=== PATIENT | female | born 1930 | race Caucasian/White ===

== ENCOUNTER → 2019-03-23 | Outpatient (CLI) | payer OTHER, MEDICAID ==
[~2019-03-23] MED LIST: ADULT LOW DOSE81 MG; ANXIETY MED; ASPIRIN; CLONAZEPAM 1 MG1 M1 PO; COLESTID1 GM PO; FISH OIL 1,0001 EAC5; FLEXERIL PO; INDERAL; INDERAL LA60 MG PO; LOMOTIL TABLET1 EACH PO; MAXIDE; MAXZIDE-25 MG1 EACH PO; MIRTAZAPINE; REMERON 30 MG T30 M1 PO; TYLENOL EX-STR500 M2 PO; VICODIN 5-5001 EACH PO
--- NOTE | 2019-03-23 17:12 | EXE ---
[place] [address] STRESS ECHOCARDIOGRAM Name: LINDA BROCK Room: [facility]#: [id number] Admission: 03/23/19 Attend Phys: Thao Castañedaise, Discharge: Date of : [birth year] Date of Service: 03/23/19 1711 Report #: [id number] THIS REPORT FOR: //name// APPROVED REPORT Study performed: 03/23/2019 15:33:36 Exam: Dobutamine Stress Echo Indication: Irreg. heart beat, Edema Patient Location: Out-Patient Stress Nurse: Amanda Garg RN Supervising Physician: Tl Yu MD Ht: 5 ft 3 in HR: 86 bpm BP: 130/77 mmHg Medical History Cardiac Risk Factors: HTN Procedure The patient underwent a Pharmacological Stress Test using Dobutamine. Blood pressure, heart rate, and EKG were monitored. An Echocardiogram was performed by manufacturing technician in four stages in quad fashion. At peak stress, four selected images were obtained and placed side by side with resting images for comparison. Stress Test Details Stress Test: Pharmacological Stress Test using Dobutamine. Reason for pharmacologic stress test: physical limitation. HR Resting HR: 86 bpm Max Heart Rate (APMHR): 133 bpm Max HR Achieved: 128 bpm Target HR (85% APMHR): 113 bpm % of APMHR: 96 Recovery HR: 94 bpm HR response to stress: Normal HR response to stress BP Resting BP: 130/77 mmHg Max BP: 167/80 mmHg Recovery BP: 167/80 mmHg BP response to stress: Normal blood pressure response to stress. ECG Resting ECG: Sinus Rhythm, [place] [address] STRESS ECHOCARDIOGRAM Name: LINDA BROCK Room: [facility]#: [id number] Admission: 03/23/19 Attend Phys: Thao Grove, Discharge: Date of : [birth year] Date of Service: 03/23/19 1711 Report #: [id number] Stress ECG: Sinus Rhythm, RBBB ST Change: Normal Maximum ST Deviation: 0 mm Arrhythmia: APC's Recovery ECG: Sinus Rhythm, RBBB Recovery ST Change: Normal Recovery ST Deviation: 0 mm Recovery Arrhythmia: APC Clinical Reason for Termination: Completed protocol Pre-Stress Echo The resting Echocardiogram showed normal left ventricular contractility with an estimated Ejection Fraction of about 60-65%. Post-Stress Echo The stress Echocardiogram showed normal left ventricular contractility with an estimated Ejection Fraction of about >70%. Compared to rest, there were no stress-induced wall motion abnormalities. Conclusion Clinical Response: Non-ischemic Stress ECG Response: Non-ischemic Stress Echo Images: Non-ischemic low risk dobutamine stress echo for predicitng future cardiac events Other Information Study Quality: Good <Conclusion> low risk dobutamine stress echo for predicitng future cardiac events <ELECTRONICALLY SIGNED> By: Tl Yu MD, FACC 03/23/191710 10 10 Tl Yu MD, FACC /INF
== END ==
LOC: M.CRD 14:24
DX: M79.89 Other specified soft tissue disorders (principal); I49.9 Cardiac arrhythmia, unspecified; I10 Essential (primary) hypertension

== ENCOUNTER 2020-02-08 10:35 | Inpatient (IN) | payer OTHER, MEDICAID ==
[~2020-02-08] VITALS: Ht 162.6 cm; Wt 67.5 kg
--- NOTE | ~2020-02-08 | CON ---
[address] [address] CONSULTATION Name: LINDA BROCK Room: [address] IN M.R.#: [id number] Admission: 02/08/20 Attend Phys: Murali Myers MD Discharge: Date of : [birth year] Report #: [id number] THIS REPORT FOR: //name// cc: Juan Jeffrey MD, Dennis R MD ~ DATE OF SERVICE: 02/09/2020 HISTORY OF PRESENT ILLNESS: This is an 89-year-old female patient who was evaluated by me for altered mental status. The patient is unable to provide any reliable history. I talked to the patient's daughter who provided most of the history. This patient has a longstanding dementia. She is in a intermediate for about 10 years. She follows up with Dr. Hernandez, who is a neurologist at [facility]. He manages her dementia medication. It looks like she is on a combination of Exelon and Namenda. She had a urinary tract infection and it became worse. She gets about 2 urinary tract infection per year and all the time she becomes confused like this and then she becomes better. As far as dementia is concerned, she usually does not know month or the year. She sometime recognize the close relatives and sometimes she does not. She does not have any prior history of stroke. REVIEW OF SYSTEMS: A 14-point review of system was carried out. She has a longstanding history of dementia. She has a history of urinary tract infections in the past and she has a urinary tract infection now. Rest of the 14-point review of system is difficult. It is partly taken from the patient's record and partly taken from talking to the daughter. She has a history of hypertension, cholecystectomy, GERD, depression, tremor, insomnia and Alzheimer's disease. This was a relevant 14-point review of system, which I can get. She can see, her hearing looks intact. She does not complain of any chest pain, respiratory difficulty, any new GI symptoms. She does not complain of that much even symptoms. There is no musculoskeletal, constitutional, dermatological, hematological, psychiatric, throat, allergic symptom associated with present symptomatology. PAST MEDICAL HISTORY: Positive for Alzheimer's dementia, which is very advanced. FAMILY HISTORY: Unremarkable. SOCIAL HISTORY: She lives in a intermediate according to the daughter. PHYSICAL EXAMINATION: Indicate she is alert. Her speech looks intact. She cannot tell me what month or what day it is. She does not know what hospital she is in. She knew Colleen was president but that is only cognitive function she had. Cranial nerve examination 2-12 looks unremarkable. She has symmetrical strength, sensation, reflexes and tone in all 4 extremities, [place] [address] CONSULTATION Name: LINDA BROCK Room: [address] IN [facility]#: [id number] Admission: 02/08/20 Attend Phys: Murali Myers MD Discharge: Date of : [birth year] Report #: [id number] lower extremity is present, but both plantars are withdrawal. Sensation, she says she can feel both sides. There is no cerebellar sign. I could not look at the patient's fundus. I did not make her walk, but she walks with a walker. There is no meningeal sign. There is no carotid bruit. Cardiac and respiratory examination is unremarkable. There is no respiratory difficulty. There is no rhonchi. Blood pressure is 184/65, respirations 17, pulse is 49, and temperature is 96.9. Pulses are difficult to feel. There is some question of atrial fibrillation in the record, but I can tell by looking at the patient's heart. There is no respiratory difficulty. Pulses are somewhat difficult to feel. There is no edema, cyanosis, no jaundice. Cardiac and respiratory examinations appear unremarkable. White count is 8.4. Vital signs indicated blood pressure 184/65, respiration is 17, pulse is 49, and temperature is 97.6. Her CT looks unremarkable and carotid Doppler does not appear to be showing any definite abnormality. IMPRESSION: This patient has advanced dementia. On top of that, she has encephalopathy secondary to urinary tract infection. I discussed the options with the patient's daughter. I discussed with her that we can do an MRI and other testing to find out if she had a stroke or any other abnormality. She indicates that neither the patient nor she wants any of those testing done. She basically wants to do simple management like treating her infection. She is already on aspirin. I will suggest doing a TSH and vitamin B12 level and correct it if that is abnormal, She is on Namenda. We can increase the dose, but she already has a neurologist and we will defer to them what they want to do Thank you very much for this referral and we will not plan to follow up, but please call if there is any question. By: 1054 [id number] Ford MD /nt
[2020-02-08 10:58] VITALS: BP 136/68
[2020-02-08 11:06] LABS: URINE BILIRUBIN NEGATIVE (Negative); URINE BLOOD NEGATIVE (Negative); URINE CLARITY CLEAR; URINE COLOR YELLOW; URINE GLUCOSE-RANDOM NEGATIVE (Negative); URINE KETONES NEGATIVE (Negative); URINE NITRITE-REFLEX NEGATIVE (Negative); URINE PROTEIN NEGATIVE (Negative); URINE UROBILINOGEN 0.2 E.U./dl (0.2-1.0)
[2020-02-08] MEDS ORDERED: ASA81BEC PO (11:07)
[2020-02-08] MEDS ORDERED: DAIRY AID3000 UNIT PO (11:07)
[2020-02-08] MEDS ORDERED: OMEPRAZOLE 20 M20 M1 PO (11:08)
[2020-02-08] MEDS ORDERED: POTASSIUM GLUCO90 MG PO (11:08)
[2020-02-08] MEDS ORDERED: PHILLIPS' COLO1 EACH PO ×2 (11:08→11:11)
[2020-02-08 11:09] LABS: URINE LEUKOCYTES-REFLEX 3+ (Negative)
[2020-02-08 11:09] LABS: ABSOLUTE BASOPHILS 0.1 thou/uL (0.0-0.2); ABSOLUTE EOSINOPHILS 0.1 thou/uL (0.0-0.7); ABSOLUTE LYMPHOCYTES 1.5 thou/uL (0.8-5.3); ABSOLUTE MONOCYTES 1.1 thou/uL (0.0-1.2); ABSOLUTE NEUTROPHILS 7.4 thou/uL (1.6-8.1); BASOPHILS 0.7 %; EOSINOPHILS 1.1 %; HEMATOCRIT 41.7 % (37.0-47.0); HEMOGLOBIN 14.1 gm/dL (12.0-15.0); LYMPHOCYTES 14.8 %; MCH 30.9 pg (26.0-34.0); MCHC 33.8 g/dL (28.0-37.0); MCV 91.5 fL (80.0-100.0); MONOCYTES 11.1 %; MPV 10.8 fl. (7.2-11.1); NUCLEATED RBCS 0 /100WBC; PLATELET COUNT* 152 thou/uL (150-400); POLYS 72.3 %; RBC 4.56 mil/uL (4.20-5.00); RDW-CV 13.4 % (10.5-14.5); WBC 10.2 thou/uL (4.0-11.0)
[2020-02-08] MEDS ORDERED: DESYREL150 MG PO (11:12)
[2020-02-08] MEDS ORDERED: SEROQUEL 100 M100 M1 PO (11:12)
[2020-02-08] MEDS ORDERED: SEROQUEL 50 MG50 M1 PO (11:12)
[2020-02-08] MEDS ORDERED: TRIAMTERENE/HCT1 CA1 PO (11:12)
[2020-02-08] MEDS ORDERED: VITAMIN D31250 MC1 PO (11:13)
[2020-02-08] MEDS ORDERED: NAMENDA 10 MG T10 MG PO (11:13)
[2020-02-08] MEDS ORDERED: PRESERVISION A1 EAC2 PO (11:13)
[2020-02-08] MEDS ORDERED: RIVASTIGMINE6 MG PO (11:14)
[2020-02-08] MEDS ORDERED: NEURONTIN100 MG PO (11:14)
[2020-02-08] MEDS ORDERED: VISINE TEARS DR15 ML OPHTHALMIC (11:14)
[2020-02-08] MEDS ORDERED: OXYBUTYNIN 5 MG5 M2 PO (11:14)
[2020-02-08] MEDS ORDERED: PROAIR HFA8.5 GM INH (11:15)
[2020-02-08] MEDS ORDERED: SILTUSSIN100 MG/5 M PO (11:15)
[2020-02-08] MEDS ORDERED: FUROSEMIDE 20 M20 MG PO (11:15)
[2020-02-08 11:16] LABS: CALCIUM 9.3 mg/dL (8.5-10.1); POTASSIUM 3.6 mmol/L (3.5-5.1)
[2020-02-08 11:18] LABS: SQUAMOUS NONE SEEN /LPF (0-3)
[2020-02-08 11:19] LABS: BACTERIA-REFLEX >30 Many /HPF (None Seen); URINE RBC None Seen /HPF (0-2); URINE WBC-REFLEX >25 Many /HPF (0-5); WBC CLUMPS Moderate (None Seen)
[2020-02-08 11:20] LABS: CASTS None Seen /LPF (None Seen); CRYSTALS None Seen /LPF (None Seen); MUCUS 4-6 Moderate strn/LPF (None Seen)
[2020-02-08 11:29] LABS: APTT 28.5 Seconds (25.0-31.3); INR 1.1; PROTIME 11.1 Seconds (9.20-11.50)
[2020-02-08 11:32] LABS: ALBUMIN 3.3 g/dL (3.4-5.0); CK-MB MASS 32.3 ng/mL (<0.5-3.6); TOTAL BILIRUBIN 0.6 mg/dL (<0.1-1.0); TOTAL PROTEIN 6.8 g/dL (6.4-8.2)
[2020-02-08 14:57] VITALS: BP 105/65
[2020-02-08 15:00] VITALS: BP 146/61
[2020-02-08 20:00] VITALS: BP 125/60
[2020-02-09] VITALS: BP 137/69
[2020-02-09 04:00] VITALS: BP 144/63
[2020-02-09 05:03] LABS: ABSOLUTE EOSINOPHILS 0.2 thou/uL (0.0-0.7); ABSOLUTE LYMPHOCYTES 2.3 thou/uL (0.8-5.3); ABSOLUTE MONOCYTES 0.7 thou/uL (0.0-1.2); ABSOLUTE NEUTROPHILS 5.2 thou/uL (1.6-8.1); BASOPHILS 0.5 %; EOSINOPHILS 2.7 %; HEMATOCRIT 37.1 % (37.0-47.0); HEMOGLOBIN 12.5 gm/dL (12.0-15.0); LYMPHOCYTES 26.9 %; MCH 31.2 pg (26.0-34.0); MCHC 33.8 g/dL (28.0-37.0); MCV 92.5 fL (80.0-100.0); MONOCYTES 7.9 %; MPV 11.5 fl. (7.2-11.1); NUCLEATED RBCS 0 /100WBC; PLATELET COUNT* 128 thou/uL (150-400); RBC 4.01 mil/uL (4.20-5.00); RDW-CV 13.5 % (10.5-14.5); WBC 8.4 thou/uL (4.0-11.0)
[2020-02-09 05:09] LABS: CHOLESTEROL 97 mg/dL (<200); HDL CHOLESTEROL 24 mg/dL (>40); LDL CHOLESTEROL 45 mg/dL (<100); SERUM ASSESSMENT Clear; TRIGLYCERIDE 140 mg/dL (<150); VLDL 28 mg/dL (<40)
[2020-02-09 05:10] LABS: CALCIUM 8.4 mg/dL (8.5-10.1); CREATININE 0.7 mg/dL (0.6-1.3); POTASSIUM 3.5 mmol/L (3.5-5.1)
[2020-02-09 07:08] LABS: GLYCOHEMOGLOBIN (HGB A1C) 6.2 % (4.8-5.6)
[2020-02-09 08:00] VITALS: BP 184/65
--- NOTE | 2020-02-09 08:24 | EKG ---
[place] [address] ELECTROCARDIOGRAM REPORT Name: LINDA BROCK Room: [address] ADM IN M.R.#: [id number] Admission: 02/08/20 Attend Phys: Murali Myers, Discharge: Date of : [birth year] Date of Service: 02/08/20 1057 Report #: [id number] THIS REPORT FOR: //name// [facility] ED Test Date: 2020-02-08 Test Time: 10:57:33 Pat Name: LINDA BROCK Department: Room: [facility] Gender: F Hogshead Packer: : 1930 Requested By: Fidel Elliott Order Number: [id number] MD: Jimenez Jovel Measurements Intervals [place] Rate: 81 P: [place]: QRS: -54 QRSD: 135 T: -38 QT: 389 QTc: 452 Interpretive Statements Sinus rhythm with frequent and consecutive PACs Ventricular premature complex RBBB and LAFB Baseline wander in lead(s) II,III,aVF Compared to ECG 03/07/2009 09:51:58 Ventricular premature complex(es) now present Left anterior fascicular block now present Right bundle-branch block now present Electronically Signed On 02-09-2020 8:23:47 CDT by Jimenez Jovel [email or web address] <ELECTRONICALLY SIGNED> By: Jimenez Jovel MD, FACC 02/09/20 0823 56 Jimenez Jovel MD, FAC /EPI
[2020-02-09 12:59] VITALS: BP 120/75
--- NOTE | 2020-02-09 14:54 | 2DMMODE ---
[place] [address] 2 D/M-MODE ECHOCARDIOGRAM Name: LINDA BROCK Room: [address] IN .R.#: [id number] Admission: 02/08/20 Attend Phys: Murali Myers, Discharge: Date of : [birth year] Date of Service: 02/09/20 1454 Report #: [id number] THIS REPORT FOR: cc: Juan Jeffrey MD, Dennis R MD [place],Jimenez Reagan MD [facility] ~ APPROVED REPORT Study performed: 02/09/2020 13:10:48 EXAM: Comprehensive 2D, Doppler, and color-flow Echocardiogram Patient Location: Bedside BSA: 1.68 HR: 76 bpm BP: 144/63 mmHg Other Information Study Quality: Adequate Technically limited study due to inability to position patient. Indications CVA/TIA Echo Enhancing Agent Indication: Rule out Shunt Agent(s) / Amount(s) Used: Agitated Saline cc 2D Dimensions IVSd: 12.65 (7-11mm) LVOT Diam: 19.08 (18-24mm) LVDd: 43.98 mm PWd: 10.76 (7-11mm) Ascending Ao: 35.30 (22-36mm) LVDs: 31.15 (25-40mm) Aortic Root: 26.12 mm Volumes Left Atrial Volume (Systole) LA ESV Index: 17.70 mL/m2 Aortic Valve AoV Peak Thang.: 0.88 m/s AO Peak Gr.: 3.12 mmHg LVOT Max P.15 mmHg AO Mean Gr.: 1.71 mmHg LVOT Mean P.14 [place] [address] 2 D/M-MODE ECHOCARDIOGRAM Name: LINDA BROCK Room: [address] IN .R.#: [id number] Admission: 02/08/20 Attend Phys: Murali Myers, Discharge: Date of : [birth year] Date of Service: 02/09/20 1454 Report #: [id number] LVOT Max V: 0.73 m/s AO V2 VTI: 17.79 cm LVOT Mean V: 0.49 m/s DIANNA (VTI): 2.05 cm2 LVOT V1 VTI: 12.76 cm Mitral Valve E/A Ratio: 0.72 MV Decel. Time: 194.76 ms MV E Max Thang.: 0.56 m/s MV PHT: 56.48 ms MVA (PHT): 3.90 cm2 TDI E/Lateral E': 5.09 E/Medial E': 11.20 Medial E' Thang.: 0.05 m/s Lateral E' Thang.: 0.11 m/s Pulmonary Valve PV Peak Thang.: 0.75 m/s PV Peak Gr.: 2.23 mmHg Tricuspid Valve RAP Estimate: 5.00 mmHg TR Peak Gr.: 27.26 mmHg RVSP: 32.26 mmHg PA Pressure: 32.26 mmHg Left Ventricle The left ventricle is normal size. There is normal LV segmental wall motion. There is normal left ventricular wall thickness. Left ventricular systolic function is normal. LVEF is 55-60%. Grade I - abnormal relaxation pattern. Right Ventricle The right ventricle is normal size. The right ventricular systolic function is normal. Atria The left atrium size is normal. Injection of bubbles documented no interatrial shunt. The right atrium size is normal. Aortic Valve The Aortic valve is sclerotic. Trace aortic regurgitation. There is no aortic valvular stenosis. Mitral Valve The mitral valve is normal in structure. Trace mitral regurgitation. No evidence [place] [address] 2 D/M-MODE ECHOCARDIOGRAM Name: VINODLINDA Nathan Room: [address] IN [facility]#: [id number] Admission: 02/08/20 Attend Phys: Murali Myers, Discharge: Date of : [birth year] Date of Service: 02/09/20 1454 Report #: [id number] Tricuspid Valve The tricuspid valve is normal in structure. Trace tricuspid regurgitation. The RVSP is 32 mmHg. Pulmonic Valve The pulmonary valve is normal in structure. There is no pulmonic valvular regurgitation. Great Vessels The aortic root is normal in size. IVC is normal in size and collapses >50% with inspiration. Pericardium There is no pericardial effusion. <Conclusion> The left ventricle is normal size. There is normal left ventricular wall thickness. Left ventricular systolic function is normal. LVEF is 55-60%. Grade I - abnormal relaxation pattern. The Aortic valve is sclerotic. There is no aortic valvular stenosis. Trace mitral regurgitation. Trace tricuspid regurgitation. The RVSP is 32 mmHg. Injection of bubbles documented no interatrial shunt. <ELECTRONICALLY SIGNED> By: Jimenez Jovel MD, FACC 02/09/20 1454 1454 1454 Jimenez Jovel MD, FACC /INF
[2020-02-09 16:38] VITALS: BP 125/72
[2020-02-09 20:00] VITALS: BP 137/73
[2020-02-10] VITALS: BP 118/67
[2020-02-10 04:00] VITALS: BP 151/76
[2020-02-10 05:45] LABS: ALBUMIN 2.5 g/dL (3.4-5.0); CALCIUM 8.2 mg/dL (8.5-10.1); CREATININE 0.7 mg/dL (0.6-1.3); TOTAL BILIRUBIN 0.3 mg/dL (<0.1-1.0); TOTAL PROTEIN 5.7 g/dL (6.4-8.2)
[2020-02-10 05:55] LABS: ABSOLUTE BASOPHILS 0.1 thou/uL (0.0-0.2); ABSOLUTE EOSINOPHILS 0.4 thou/uL (0.0-0.7); ABSOLUTE LYMPHOCYTES 1.5 thou/uL (0.8-5.3); ABSOLUTE MONOCYTES 0.7 thou/uL (0.0-1.2); BASOPHILS 0.6 %; EOSINOPHILS 5.1 %; HEMATOCRIT 38.6 % (37.0-47.0); LYMPHOCYTES 16.9 %; MCH 31.4 pg (26.0-34.0); MCHC 33.6 g/dL (28.0-37.0); MCV 93.4 fL (80.0-100.0); MONOCYTES 8.1 %; MPV 11.5 fl. (7.2-11.1); NUCLEATED RBCS 0 /100WBC; PLATELET COUNT* 128 thou/uL (150-400); POLYS 69.3 %; RBC 4.13 mil/uL (4.20-5.00); RDW-CV 13.5 % (10.5-14.5); WBC 8.6 thou/uL (4.0-11.0)
[2020-02-10 08:00] VITALS: BP 160/71
[2020-02-10] MEDS ORDERED: MACROBID 100 M100 MG PO (09:56)
== END 2020-02-10 15:20 | disposition home or self-care (01) | DRG 689 ==
LOC: M.ERS 10:35 → M.TBA-ER 11:34 → M.2W 11:34 → M.TBA-ER 12:30 → M.2W 15:10
PROVIDERS: Family Medicine; ADMIT Internal Medicine; ATTEND Internal Medicine
DX: N39.0 Urinary tract infection, site not specified (principal); G93.41 Metabolic encephalopathy; N17.9 Acute kidney failure, unspecified; M62.82 Rhabdomyolysis; Z20.828 Contact with and (suspected) exposure to other viral communicable diseases; I10 Essential (primary) hypertension; K21.9 Gastro-esophageal reflux disease without esophagitis; F32.9 Major depressive disorder, single episode, unspecified; G47.00 Insomnia, unspecified; F03.90 Unspecified dementia, unspecified severity, without behavioral disturbance, psychotic disturbance, mood disturbance, and anxiety; Z66 Do not resuscitate; B96.20 Unspecified Escherichia coli [E. coli] as the cause of diseases classified elsewhere; Z90.49 Acquired absence of other specified parts of digestive tract; Z88.1 Allergy status to other antibiotic agents; Z88.0 Allergy status to penicillin; Z88.8 Allergy status to other drugs, medicaments and biological substances

== ENCOUNTER 2020-02-19 21:23 | Emergency (ER) | payer OTHER, MEDICAID ==
[~2020-02-19] VITALS: Ht 162.6 cm; Wt 63.3 kg
[~2020-02-19 21:23] MED LIST changes: +ASA81BEC PO; +DAIRY AID3000 UNIT PO; +DESYREL150 MG PO; +FUROSEMIDE 20 M20 MG PO; +MACROBID 100 M100 MG PO; +NAMENDA 10 MG T10 MG PO; +NEURONTIN100 MG PO; +OMEPRAZOLE 20 M20 M1 PO; +OXYBUTYNIN 5 MG5 M2 PO; +PHILLIPS' COLO1 EACH PO; +POTASSIUM GLUCO90 MG PO; +PRESERVISION A1 EAC2 PO; +PROAIR HFA8.5 GM INH; +RIVASTIGMINE6 MG PO; +SEROQUEL 100 M100 M1 PO; +SEROQUEL 50 MG50 M1 PO; +SILTUSSIN100 MG/5 M PO; +TRIAMTERENE/HCT1 CA1 PO; +VISINE TEARS DR15 ML OPHTHALMIC; +VITAMIN D31250 MC1 PO
[2020-02-19 22:03] LABS: HEMATOCRIT 43.1 % (37.0-47.0); HEMOGLOBIN 14.4 gm/dL (12.0-15.0); MCH 31.3 pg (26.0-34.0); MCHC 33.4 g/dL (28.0-37.0); MCV 93.7 fL (80.0-100.0); MPV 10.8 fl. (7.2-11.1); NUCLEATED RBCS 0 /100WBC; PLATELET COUNT* 164 thou/uL (150-400); RDW-CV 13.9 % (10.5-14.5); WBC 13.3 thou/uL (4.0-11.0)
[2020-02-19 22:05] LABS: CALCIUM 9.3 mg/dL (8.5-10.1); CREATININE 1.1 mg/dL (0.6-1.3); POTASSIUM 4.1 mmol/L (3.5-5.1)
[2020-02-19 22:09] LABS: ALBUMIN 3.4 g/dL (3.4-5.0); TOTAL BILIRUBIN 0.5 mg/dL (<0.1-1.0)
[2020-02-19 22:51] LABS: URINE BILIRUBIN NEGATIVE (Negative); URINE BLOOD NEGATIVE (Negative); URINE CLARITY CLEAR; URINE COLOR YELLOW; URINE GLUCOSE-RANDOM NEGATIVE (Negative); URINE KETONES NEGATIVE (Negative); URINE LEUKOCYTES-REFLEX NEGATIVE (Negative); URINE NITRITE-REFLEX NEGATIVE (Negative); URINE PROTEIN NEGATIVE (Negative); URINE UROBILINOGEN 0.2 E.U./dl (0.2-1.0)
[2020-02-19 23:26] LABS: ABSOLUTE LYMPHOCYTES 1.2 thou/uL (0.8-5.3); ABSOLUTE MONOCYTES 1.3 thou/uL (0.0-1.2); ABSOLUTE NEUTROPHILS 10.8 thou/uL (1.6-8.1); GIANT PLATELETS RARE; PLATELET ESTIMATE ADEQUATE
[2020-02-20 00:40] VITALS: BP 118/88
== END 2020-02-20 00:44 | disposition home or self-care (01) ==
LOC: M.ERS 21:23
PROVIDERS: Personal Emergency Response Attendant
DX: E86.0 Dehydration (principal); F03.90 Unspecified dementia, unspecified severity, without behavioral disturbance, psychotic disturbance, mood disturbance, and anxiety; R53.1 Weakness; Z20.828 Contact with and (suspected) exposure to other viral communicable diseases; K21.9 Gastro-esophageal reflux disease without esophagitis; I10 Essential (primary) hypertension; F32.9 Major depressive disorder, single episode, unspecified; Z88.0 Allergy status to penicillin; Z88.1 Allergy status to other antibiotic agents; Z88.8 Allergy status to other drugs, medicaments and biological substances; Z90.49 Acquired absence of other specified parts of digestive tract

== ENCOUNTER 2020-03-18 07:24 | Inpatient (IN) | payer OTHER, MEDICAID ==
[~2020-03-18] VITALS: Ht 152.4 cm; Wt 67.9 kg
[2020-03-18 07:25] VITALS: BP 185/114
[2020-03-18 07:55] LABS: ABSOLUTE BASOPHILS 0.1 thou/uL (0.0-0.2); ABSOLUTE EOSINOPHILS 0.1 thou/uL (0.0-0.7); ABSOLUTE LYMPHOCYTES 1.2 thou/uL (0.8-5.3); ABSOLUTE MONOCYTES 0.8 thou/uL (0.0-1.2); ABSOLUTE NEUTROPHILS 8.7 thou/uL (1.6-8.1); BASOPHILS 0.5 %; EOSINOPHILS 1.1 %; HEMATOCRIT 41.5 % (37.0-47.0); LYMPHOCYTES 10.9 %; MCH 31.3 pg (26.0-34.0); MCHC 33.7 g/dL (28.0-37.0); MCV 92.9 fL (80.0-100.0); MONOCYTES 7.5 %; MPV 11.4 fl. (7.2-11.1); NUCLEATED RBCS 0 /100WBC; PLATELET COUNT* 125 thou/uL (150-400); RBC 4.47 mil/uL (4.20-5.00); RDW-CV 13.5 % (10.5-14.5); WBC 10.9 thou/uL (4.0-11.0)
[2020-03-18 08:02] LABS: PROTIME 10.8 Seconds (9.20-11.50)
[2020-03-18 08:03] LABS: CALCIUM 8.3 mg/dL (8.5-10.1); CREATININE 0.8 mg/dL (0.6-1.3); POTASSIUM 3.7 mmol/L (3.5-5.1)
[2020-03-18 08:08] LABS: TOTAL BILIRUBIN 0.3 mg/dL (<0.1-1.0); TOTAL PROTEIN 6.6 g/dL (6.4-8.2)
--- NOTE | 2020-03-18 08:45 | NUR ---
C-COLLAR REMOVED PER DR. YEN
[2020-03-18 11:09] LABS: URINE BILIRUBIN NEGATIVE (Negative); URINE BLOOD 1+ (Negative); URINE CLARITY CLEAR; URINE COLOR YELLOW; URINE GLUCOSE-RANDOM NEGATIVE (Negative); URINE KETONES NEGATIVE (Negative); URINE PROTEIN 1+ (Negative); URINE SPECIFIC GRAVITY 1.015 (1.005-1.030); URINE UROBILINOGEN 0.2 E.U./dl (0.2-1.0)
[2020-03-18 11:12] LABS: URINE LEUKOCYTES-REFLEX 3+ (Negative); URINE NITRITE-REFLEX POSITIVE (Negative)
[2020-03-18 11:18] LABS: SQUAMOUS 0-3 Few /LPF (0-3); URINE WBC-REFLEX >25 Many /HPF (0-5)
[2020-03-18 11:19] LABS: BACTERIA-REFLEX >30 Many /HPF (None Seen); CASTS None Seen /LPF (None Seen); CRYSTALS None Seen /LPF (None Seen); MUCUS None Seen strn/LPF (None Seen); URINE RBC 0-2 Rare /HPF (0-2)
[2020-03-18 13:57] VITALS: BP 152/52
[2020-03-18 14:20] VITALS: BP 163/67
--- NOTE | 2020-03-18 17:36 | EKG ---
[place] [address] ELECTROCARDIOGRAM REPORT Name: LINDA BROCK Room: [address] ADM IN M.R.#: [id number] Admission: 03/18/20 Attend Phys: Murali Myers, Discharge: Date of : [birth year] Date of Service: 03/18/20 0756 Report #: [id number] THIS REPORT FOR: //name// [facility] ED Test Date: 2020-03-18 Test Time: 07:56:00 Pat Name: LINDA BROCK Department: Room: [facility] Gender: F Operator Specialist Communications: HENOK : 1930 Requested By: Víctor [place]oley Order Number: [id number] MD: Tl Yu Measurements Intervals [place] Rate: 76 P: [place]: QRS: -61 QRSD: 135 T: -24 QT: 434 QTc: 489 Interpretive Statements Atrial fibrillation artifact noted Nonspecific IVCD with LAD Nonspecific T abnormalities, inferior leads Compared to ECG 02/08/2020 10:57:33 Sinus rhythm no longer present Ventricular premature complex(es) no longer present Right bundle-branch block no longer present Electronically Signed On 03-18-2020 17:36:32 DIVING JUDGE by Tl Yu [email or web address] <ELECTRONICALLY SIGNED> By: Tl Yu MD, [facility] 03/18/20 1736 0756 0756 Tl Yu MD, [facility] /EPI
[2020-03-18 20:00] VITALS: BP 147/67
[2020-03-19 00:38] VITALS: BP 155/59
[2020-03-19 02:05] LABS: GLYCOHEMOGLOBIN (HGB A1C) 6.4 % (4.8-5.6)
[2020-03-19 04:00] VITALS: BP 163/78
[2020-03-19 05:22] LABS: ABSOLUTE BASOPHILS 0.1 thou/uL (0.0-0.2); ABSOLUTE EOSINOPHILS 0.2 thou/uL (0.0-0.7); ABSOLUTE LYMPHOCYTES 1.9 thou/uL (0.8-5.3); ABSOLUTE MONOCYTES 0.8 thou/uL (0.0-1.2); ABSOLUTE NEUTROPHILS 5.1 thou/uL (1.6-8.1); BASOPHILS 0.7 %; EOSINOPHILS 2.4 %; HEMATOCRIT 39.4 % (37.0-47.0); HEMOGLOBIN 13.3 gm/dL (12.0-15.0); LYMPHOCYTES 23.1 %; MCHC 33.7 g/dL (28.0-37.0); MCV 91.9 fL (80.0-100.0); MPV 12.1 fl. (7.2-11.1); NUCLEATED RBCS 0 /100WBC; PLATELET COUNT* 129 thou/uL (150-400); POLYS 63.8 %; RBC 4.28 mil/uL (4.20-5.00); RDW-CV 13.4 % (10.5-14.5)
[2020-03-19 05:55] LABS: CALCIUM 9.2 mg/dL (8.5-10.1); CREATININE 0.9 mg/dL (0.6-1.3); POTASSIUM 3.3 mmol/L (3.5-5.1)
[2020-03-19 06:08] LABS: CHOLESTEROL 113 mg/dL (<200); HDL CHOLESTEROL 30 mg/dL (>40); LDL CHOLESTEROL 49 mg/dL (<100); TC:HDL 3.8 Ratio (Not establshd); TRIGLYCERIDE 173 mg/dL (<150); VLDL 35 mg/dL (<40)
[2020-03-19 06:10] LABS: SERUM ASSESSMENT Clear
--- NOTE | 2020-03-19 06:20 | NUR ---
ASSUMED PATIENT CARE AT 1900. PATIENT ALERT TO SELF. NO COMPLAINTS OF PAIN OR DISCOMFORT NOTED. EXPEDITER AND HOURLY ROUNDING COMPLETED CHARTED. PATIENT REMAINS INCONTINENT OF BOWEL AND BLADDER. UNABLE TO OBTAIN IV ACCESS AT THIS TIME. PATIENT PULLED OUT PREVIOUS IV.
[2020-03-19 08:00] VITALS: BP 130/76
[2020-03-19 10:04] LABS: CALCIUM 8.7 mg/dL (8.5-10.1); CREATININE 0.8 mg/dL (0.6-1.3); POTASSIUM 3.5 mmol/L (3.5-5.1)
[2020-03-19 10:07] LABS: MAGNESIUM 1.6 mg/dL (1.8-2.4); PHOSPHORUS* 3.2 mg/dL (2.5-4.9)
[2020-03-19 12:00] VITALS: BP 100/54
[2020-03-19 16:00] VITALS: BP 119/50
--- NOTE | 2020-03-19 17:11 | NUR ---
CM COMPLETED THE INITIAL ASSESSMENT TO DISCUSS D/C PLANNING. PT ELISRMARY CARMEN AT BEDSIDE. DVAID STATED PT WAS "CONFUSED TODAY." AEB, PT THOUGHT SHE WAS AT [facility] FOR A JOB INTERVEIW. AND, THAT PT HAS HX OF DEMENTIA. PT RESIDES A [facility] HOME FOR APPROX 2 YRS. PT WAS FOUND IN BR ON THE FLOOR AT [facility]. PT HAD O2 APPLIED BUT DOES NOT USE O2 AT HOME. PT HAS NOT USED HH RECENT D/T FACILITY'S COVID PROTOCAL. CM TO CONT TO FOLLOW.
--- NOTE | 2020-03-19 18:48 | NUR ---
ASSUMED PT CARE AT 0730, PT ALERT AND ORIENTED TO SELF BUT OTHERWISE CONFUSED. PT BEING TURNED Q2H W/ WOUND ON BOTTOM AND PT IS INCONTINENT. PUREWIC NOW IN PLACE AND WORKING WELL. PT UP TO CHAIR FOR LUNCH AND DINNER, DAUGHTER IN ROOM AND UPDATED ON POC. PT GOAL IS TO REMAIN FREE FROM FURTHER SKIN BREAKDOWN AND TO INCREASE ACTIVITY. PT WORKED W/ PT, OT AND ST TODAY. AM ASSESSMENT CHARTED, MEDS PER MAR, HOURLY ROUNDING OBSERVED, FALL PRECAUTIONS IN PLACE, CALL LIGHT W/IN REACH.
[2020-03-19 21:27] VITALS: BP 148/78
[2020-03-20 01:03] VITALS: BP 140/85
[2020-03-20 04:52] VITALS: BP 155/62
[2020-03-20 05:19] LABS: HEMATOCRIT 38.9 % (37.0-47.0); HEMOGLOBIN 13.1 gm/dL (12.0-15.0); MCH 31.3 pg (26.0-34.0); MCHC 33.7 g/dL (28.0-37.0); MCV 92.7 fL (80.0-100.0); MPV 11.7 fl. (7.2-11.1); RBC 4.19 mil/uL (4.20-5.00); RDW-CV 13.4 % (10.5-14.5); WBC 7.8 thou/uL (4.0-11.0)
--- NOTE | 2020-03-20 05:33 | NUR ---
VITALS STABLE, AFEBRILE. PT ORIENTED TO HERSELF AND . OTHERWISE NOT ORIENTED. PLEASANT AND EASILY REORIENTABLE. Q2 TURNS FOR SKIN INTEGRITY. WILL CONTINUE MONITORING FOR THE REMAINDER OF SHIFT.
[2020-03-20 05:42] LABS: ALBUMIN 2.6 g/dL (3.4-5.0); CALCIUM 8.7 mg/dL (8.5-10.1); CREATININE 0.8 mg/dL (0.6-1.3); MAGNESIUM 2.3 mg/dL (1.8-2.4); POTASSIUM 3.8 mmol/L (3.5-5.1); TOTAL BILIRUBIN 0.5 mg/dL (<0.1-1.0)
[2020-03-20 08:00] VITALS: BP 119/45
--- NOTE | 2020-03-20 09:23 | NUR ---
WOUND NURSE: PATIENT SEEN TO ADDRESS WOUND ON LEFT BUTTOCK MEASURING 2.2 X 1.3 X 0.1 CM. PRESENTS A SHALLOW EROSON WITH PARTIAL THICKNESS TISSUE LOSS. THERE IS NO ACTIVE DRAIANGE. THERE IS PINK SCAR TISSUE AROUND THE WOUND EDGES. PATIENT'S DAUGHTER IS HERE AND REPORTS HER MOTHER SITS ALL THE TIME AT HOME AND THE WOUND IS ABOUT 2 WEEKS OLD. CLEANSED WITH SOAP AND WATER, RINSED, THEN PATTED DRY. APPLIED SKIN PREP TO PERIWOUND TISSUE. COVERED WITH EXDERM LP AND SECURED IN PLACE USING SURESITE TRANSPARENT DRESSING. PLAN TO CHANGE DRESSING EVERY 3 TO 5 DAYS AND PRN. ALSO PLAN TO PROVIDE WITH WAFFLE CUSHION FOR BEDSIDE CHAIR. PATIENT IS CONFUSED, BUT INSTRUCTED DAUGHTER ON PRESSURE RELIEF METHODS AND ADDITIONAL MEASURES TO PROMOTE HEALING. SHE STATED SHE UNDERSTOOD.
--- NOTE | 2020-03-20 10:44 | CON ---
[address] [address] CONSULTATION Name: LINDA BROCK Room: [address] IN [place].#: [id number] Admission: 03/18/20 Attend Phys: Murali Myers MD Discharge: Date of : [birth year] Report #: [id number] THIS REPORT FOR: //name// cc: Juan Jeffrey MD, Dennis R MD ~ DATE OF SERVICE: 03/19/2020 CARDIOLOGY CONSULTATION HISTORY OF PRESENT ILLNESS: The patient is an 89-year-old white female who I was asked to see in the hospital today after she was noted to be in atrial fibrillation. The history is obtained from some old records. The patient is presently confused. There are no family members available. She was actually admitted here to [facility] in January with confusion. She is felt to have advanced dementia. She is felt to have a urinary tract infection. The patient apparently lives in a care facility. She was brought back to the Emergency Room yesterday morning by paramedics. She apparently had fell and struck her head. She denied any other complaints. After admission, she was noted to be in atrial fibrillation. Cardiology consultation requested. PAST MEDICAL HISTORY: Significant for cholecystectomy, hypertension, depression. MEDICATIONS: At the care facility included ProAir inhaler, omeprazole, Seroquel, Dyazide, Namenda, Lasix as needed, Desyrel, oxybutynin. ALLERGIES: SHE HAS AN ALLERGY TO AMOXICILLIN AND CELEXA. SOCIAL HISTORY: She is a nonsmoker. REVIEW OF SYSTEMS: Cannot be obtained. PHYSICAL EXAMINATION: GENERAL: Revealed an elderly, frail-appearing female, lying in bed. She appeared in no distress. VITAL SIGNS: Blood pressure 140/70, pulse is 80, she is afebrile. HEENT: She was anicteric. Conjunctivae pink. Mucous membranes moist. NECK: Veins do not appear distended. CHEST: Clear to auscultation. CARDIOVASCULAR: Regular rate and rhythm. ABDOMEN: Soft. EXTREMITIES: Had no edema. Dorsalis pedis pulse 2+ bilaterally. SKIN: Cool and dry. NEUROLOGIC: She is able to follow commands. She is not oriented to merged [facility] [place] [address] CONSULTATION Name: LINDA BROCK Jac Room: [address]#: [id number] Admission: 03/18/20 Attend Phys: Murali Myers MD Discharge: Date of : [birth year] Report #: [id number] time. DIAGNOSTIC STUDIES: ECG on admission appeared to represent atrial fibrillation with controlled response, left axis deviation. On the monitor, she now appears to be in sinus rhythm. Workup she had an echocardiogram done 2 months ago here at [facility] that showed ejection fraction of 60%, aortic sclerosis. She actually had a stress echocardiogram done a year ago because of an irregular heartbeat using dobutamine that showed an ejection fraction 60% with no stress-induced wall motion abnormalities, felt to be a nonischemic dobutamine stress echo. Her workup so far, she had a portable chest x-ray that showed normal heart size, clear lung kee. CT scan of the head performed after her fall showed no acute abnormality. Carotid Doppler study in January showed no significant stenosis. LABORATORY WORK: Sodium 142, creatinine 0.9, albumin 3.0. In January, TSH was 0.6. Her white blood cell count 8.0, hemoglobin 13.3. COVID antigen test was negative. Urinalysis: Positive leukocytes and bacteria. IMPRESSION AND RECOMMENDATIONS: 1. Atrial fibrillation. Recommend starting sotalol. The patient does not appear to be a very good candidate for anticoagulation. 2. Dementia. 3. Asthma. 4. Hypertension. The patient is on a diuretic. 5. History of depression. 6. History of recurrent falls, suspect secondary to poor balance. <ELECTRONICALLY SIGNED> By: Tl Yu MD, [facility] 03/20/20 1044 0852 [id number] Yu MD, FACC /nt
--- NOTE | 2020-03-20 11:06 | EKG ---
[place] [address] ELECTROCARDIOGRAM REPORT Name: LINDA BROCK Room: [address] ADM IN M.R.#: [id number] Admission: 03/18/20 Attend Phys: Murali Myers, Discharge: Date of : [birth year] Date of Service: 03/20/20 0834 Report #: [id number] THIS REPORT FOR: //name// [facility] Test Date: 2020-03-20 Test Time: 08:34:09 Pat Name: LINDA BROCK Department: Room: [address] Gender: F Director Business Management: : 1930 Requested By: Tl Yu Order Number: [id number] Reading MD: Tl Yu Measurements Intervals [place] Rate: 71 P: 27 DE: 198 QRS: -37 QRSD: 88 T: -8 QT: 422 QTc: 459 Interpretive Statements Sinus rhythm Abnormal R-wave progression, late transition Left ventricular hypertrophy Borderline T abnormalities, inferior leads Compared to ECG 03/18/2020 07:56:00 Left ventricular hypertrophy now present Atrial fibrillation no longer present T-wave abnormality still present Electronically Signed On 03-20-2020 11:05:58 GENERATOR MECHANIC by Tl Yu [email or web address] <ELECTRONICALLY SIGNED> By: Tl Yu MD, FACC 03/20/20 1105 3 3 Tl Yu MD, [facility] /EPI
[2020-03-20 12:00] VITALS: BP 93/45
--- NOTE | 2020-03-20 13:04 | NUR ---
Pt on IVABX. Plan return to [facility] at [facility]. ? need for HH. CM following. [facility] p:[phone]
[2020-03-20 16:00] VITALS: BP 105/40
[2020-03-20 19:50] VITALS: BP 99/41
--- NOTE | 2020-03-20 19:50 | NUR ---
ASSUMED PT CARE AT 0730, PT SLEEPING AND ORIENTED TO SELF ONLY ALL DAY. PT GOT UP TO CHAIR FOR MEALS AND SAT ON WAFFLE CUSHION. PT WORKED W/ WOUND CARE TODAY, DAUGHTER IN ROOM AND UPDATED ON POC. PT GOALS IS TO REMAIN FREE FROM FURTHER SKIN BREAKDOWN AND CONTINUE TO INCREASE ACTIVITY. AM ASSESSMENT CHARTED, MEDS PER MAR, HOURLY ROUNDING OBSERVED, FALL PRECAUTIONS IN PLACE, CALL LIGHT W/IN REACH.
[2020-03-21] VITALS (7 sets, daily range): BP systolic 100–133; BP diastolic 47–70
--- NOTE | 2020-03-21 02:08 | NUR ---
ASSUMED CARE OF PT AT 1900. PT IS CONFUSED. VSS. PERRLA. NO COMPLAINTS OF PAIN. PT IS INCONTINANT OF BOWEL AND URINE. PT HAS A PURE WICK. PT IS IN SINUS RYTHM. NO A FIB THIS SHIFT SO FAR. PT IS SLEEPING QUIETLY IN BED. RESPIRATIONS ARE EVEN AND NONLABORED. WILL CONTINUE TO MONITOR PT.
[2020-03-21 04:41] LABS: HEMATOCRIT 36.7 % (37.0-47.0); HEMOGLOBIN 12.4 gm/dL (12.0-15.0); MCH 30.9 pg (26.0-34.0); MCHC 33.7 g/dL (28.0-37.0); MCV 91.7 fL (80.0-100.0); MPV 11.9 fl. (7.2-11.1); RDW-CV 13.3 % (10.5-14.5); WBC 8.5 thou/uL (4.0-11.0)
[2020-03-21 04:54] LABS: ALBUMIN 2.5 g/dL (3.4-5.0); CALCIUM 9.1 mg/dL (8.5-10.1); CREATININE 0.9 mg/dL (0.6-1.3); MAGNESIUM 1.8 mg/dL (1.8-2.4); POTASSIUM 3.7 mmol/L (3.5-5.1); TOTAL BILIRUBIN 0.3 mg/dL (<0.1-1.0); TOTAL PROTEIN 5.6 g/dL (6.4-8.2)
--- NOTE | 2020-03-21 10:17 | EKG ---
[place] [address] ELECTROCARDIOGRAM REPORT Name: LINDA BROCK Room: [address] IN M.R.#: [id number] Admission: 03/18/20 Attend Phys: Murali Myers, Discharge: Date of : [birth year] Date of Service: 03/21/20 0832 Report #: [id number] THIS REPORT FOR: //name// [facility] Test Date: 2020-03-21 Test Time: 08:32:46 Pat Name: LINDA BROCK Department: Room: [address] Gender: F Fringe Weaver: : 1930 Requested By: Tl Yu Order Number: [id number] Reading MD: Tl Yu Measurements Intervals [place] Rate: 59 P: 34 [place]: 202 QRS: -33 QRSD: 88 T: -6 QT: 501 QTc: 497 Interpretive Statements Sinus rhythm Ventricular premature complex Left axis deviation Abnormal R-wave progression, late transition Borderline T abnormalities, anterior leads Borderline prolonged QT interval Compared to ECG 03/20/2020 08:34:09 Ventricular premature complex(es) now present Left ventricular hypertrophy no longer present T-wave abnormality still present Electronically Signed On 03-21-2020 10:17:07 STOCK SORTER by Tl Yu [email or web address] <ELECTRONICALLY SIGNED> By: Tl Yu MD, [facility] 03/21/20 1017 1 1 Tl Yu MD, [facility] /EPI
--- NOTE | 2020-03-21 12:45 | NUR ---
Per , Pt medically stable to dc back to INTERMEDIATE with HH, waiting on dc orders. CM updated Alana at [facility], confirmed that Pt can have HH, [facility] can accept Pt. CM faxed initial referral to HH, waiting on dc orders, will fax when available. Jennie Jackson Oglesby p:[phone] f:[phone]
[2020-03-21] MEDS ORDERED: CIPRO500 MG PO (12:51)
[2020-03-21] MEDS ORDERED: SORINE 80 MG TA80 M1 PO (12:52)
[2020-03-21] MEDS ORDERED: ACETAMINOPHEN325 M1 PO (12:53)
[2020-03-21] MEDS ORDERED: SILTUSSIN100 MG/5 M PO (12:56)
--- NOTE | 2020-03-21 18:39 | NUR ---
PT CARES PROVIDED FROM 0700 UNTIL 1900. PT HAS REMAINED ALERT AND COOPERATIVE WITH STAFF. PT HAS BEEN UP IN CHAIR MAJORITY OF SHIFT. NO C/O OR INDICATION OF PAIN OR DISTRESS. INITIAL PLANS FOR RETURN TO [facility] HAVE BEEN MOVED TO TOMORROW. PT DAUGHTER HAS MADE THIS REQUEST, IT WAS REVIEWED WITH CASE MANAGEMENT AND APPROVED BY DR MCCARTNEY
[2020-03-22] VITALS: BP 141/60
[2020-03-22 05:30] VITALS: BP 126/54; BP 128/44
--- NOTE | 2020-03-22 07:32 | NUR ---
PATIENT HAS SLEPT WELL THROUGHOUT THE NIGHT. VSS ON RA. NO C/O PAIN. MEDICATIONS GIVEN ORDERED AND CHARTED. PATIENT UP WITH ASSIST X 1 TO THE CHAIR/BED. PATIENT INCONTINENT AND BRIEF CHANGED AND BROOK CARE PERFORMED. PURE WIK IN PLACE TO SUCTION. IV IN RIGHT FOREARM-SL. FALL PRECAUTIONS IN PLACE AND HOURLY ROUNDS MADE. WILL CONTINUE WITH PLAN OF CARE AND NURSING TO MONITOR.
[2020-03-22 11:30] VITALS: BP 130/57
== END 2020-03-22 13:36 | disposition home health service (06) | DRG 871 ==
LOC: M.ERS 07:24 → M.2W 08:43 → M.TBA-ER 08:43 → M.2W 14:10
PROVIDERS: Emergency Medicine Emergency Medical Services; Family Medicine; ADMIT Internal Medicine; ATTEND Internal Medicine
DX: A41.9 Sepsis, unspecified organism (principal); G93.41 Metabolic encephalopathy; I48.91 Unspecified atrial fibrillation; I10 Essential (primary) hypertension; K21.9 Gastro-esophageal reflux disease without esophagitis; J45.909 Unspecified asthma, uncomplicated; Z66 Do not resuscitate; M47.812 Spondylosis without myelopathy or radiculopathy, cervical region; E83.42 Hypomagnesemia; R26.89 Other abnormalities of gait and mobility; F32.9 Major depressive disorder, single episode, unspecified; G47.00 Insomnia, unspecified; G30.9 Alzheimer's disease, unspecified; Z20.828 Contact with and (suspected) exposure to other viral communicable diseases; F02.80 Dementia in other diseases classified elsewhere, unspecified severity, without behavioral disturbance, psychotic disturbance, mood disturbance, and anxiety; Z79.82 Long term (current) use of aspirin; Z79.891 Long term (current) use of opiate analgesic; Z90.49 Acquired absence of other specified parts of digestive tract; Z79.899 Other long term (current) drug therapy; Z88.1 Allergy status to other antibiotic agents; Z88.0 Allergy status to penicillin; Z88.8 Allergy status to other drugs, medicaments and biological substances

== ENCOUNTER 2020-09-23 20:54 | Inpatient (IN) | payer OTHER, MEDICAID ==
[~2020-09-23] VITALS: Ht 160 cm; Wt 63.5 kg
[~2020-09-23 20:54] MED LIST changes: +ACETAMINOPHEN325 M1 PO; +CIPRO500 MG PO; +SORINE 80 MG TA80 M1 PO
[2020-09-23 21:22] VITALS: BP 117/61
[2020-09-23 21:59] LABS: ABSOLUTE BASOPHILS 0.1 thou/uL (0.0-0.2); ABSOLUTE EOSINOPHILS 0.2 thou/uL (0.0-0.7); ABSOLUTE LYMPHOCYTES 1.7 thou/uL (0.8-5.3); ABSOLUTE NEUTROPHILS 8.1 thou/uL (1.6-8.1); BASOPHILS 0.6 %; HEMATOCRIT 39.2 % (37.0-47.0); HEMOGLOBIN 13.4 gm/dL (12.0-15.0); LYMPHOCYTES 15.6 %; MCH 31.6 pg (26.0-34.0); MCHC 34.3 g/dL (28.0-37.0); MCV 92.2 fL (80.0-100.0); MONOCYTES 8.9 %; MPV 9.9 fl. (7.2-11.1); NUCLEATED RBCS 0 /100WBC; PLATELET COUNT* 154 thou/uL (150-400); POLYS 72.9 %; RBC 4.25 mil/uL (4.20-5.00); RDW-CV 13.3 % (10.5-14.5); WBC 11.1 thou/uL (4.0-11.0)
[2020-09-23 22:05] LABS: CALCIUM 8.9 mg/dL (8.5-10.1); CREATININE 0.8 mg/dL (0.6-1.3)
[2020-09-23 22:10] LABS: ALBUMIN 3.4 g/dL (3.4-5.0); MAGNESIUM 1.6 mg/dL (1.8-2.4); TOTAL BILIRUBIN 0.3 mg/dL (<0.1-1.0); TOTAL PROTEIN 6.7 g/dL (6.4-8.2)
[2020-09-23 23:40] LABS: URINE BILIRUBIN NEGATIVE (Negative); URINE BLOOD NEGATIVE (Negative); URINE COLOR YELLOW; URINE GLUCOSE-RANDOM NEGATIVE (Negative); URINE KETONES NEGATIVE (Negative); URINE NITRITE-REFLEX NEGATIVE (Negative); URINE PROTEIN NEGATIVE (Negative)
[2020-09-23 23:41] LABS: URINE CLARITY SL HAZY; URINE LEUKOCYTES-REFLEX 2+ (Negative)
[2020-09-23 23:48] LABS: BACTERIA-REFLEX >30 Many /HPF (None Seen); CASTS None Seen /LPF (None Seen); CRYSTALS None Seen /LPF (None Seen); MUCUS 4-6 Moderate strn/LPF (None Seen); RENAL EPITHELIAL CELLS 0-3 Few /LPF (None Seen); SQUAMOUS 0-3 Few /LPF (0-3); TRANSITIONAL EPITHEL CELL 0-3 Few /LPF (None Seen); URINE RBC 3-10 Few /HPF (0-2); URINE WBC-REFLEX >25 Many /HPF (0-5); WBC CLUMPS Moderate (None Seen)
[2020-09-24 01:25] VITALS: BP 130/85
[2020-09-24 01:30] VITALS: BP 133/59
[2020-09-24 07:20] VITALS: BP 178/82
--- NOTE | 2020-09-24 11:39 | EKG ---
[place] [address] ELECTROCARDIOGRAM REPORT Name: LINDA BROCK Room: [address]#: [id number] Admission: 09/24/20 Attend Phys: Belgica Soriano MD Discharge: Date of : [birth year] Date of Service: 09/23/202137 Report #: [id number] THIS REPORT FOR: //name// [facility] ED Test Date: 2020-09-23 Test Time: 21:38:28 Pat Name: LINDA BROCK Department: Room: [facility] Gender: F Battery Hand: [place] : 1930 Requested By: Rachana Smith Order Number: [id number] MD: Tl Yu Measurements Intervals [place] Rate: 75 P: 37 AL: 212 QRS: -52 QRSD: 127 T: -5 QT: 437 QTc: 489 Interpretive Statements Sinus rhythm Borderline prolonged AL interval RBBB and LAFB Baseline wander in lead(s) V1 Compared to ECG 03/21/2020 08:32:46 Left anterior fascicular block now present Right bundle-branch block now present Ventricular premature complex(es) no longer present T-wave abnormality no longer present Electronically Signed On 09-24-2020 11:38:45 CDT by Tl Yu [email or web address] <ELECTRONICALLY SIGNED> By: Tl Yu MD, [facility] 09/24/20 1138 37 37 Tl Yu MD, [facility] /EPI
[2020-09-24 16:36] VITALS: BP 138/74
[2020-09-24 21:15] VITALS: BP 108/54
[2020-09-25 07:25] VITALS: BP 180/89
[2020-09-25 16:46] VITALS: BP 143/52
[2020-09-25 20:28] VITALS: BP 145/98
[2020-09-26 04:28] VITALS: BP 152/67
[2020-09-26 07:10] VITALS: BP 159/84
[2020-09-26 10:06] VITALS: BP 159/84
[2020-09-26 16:35] VITALS: BP 137/65
[2020-09-26 21:35] VITALS: BP 168/70
[2020-09-27] VITALS: BP 153/64
[2020-09-27 04:35] LABS: HEMATOCRIT 38.9 % (37.0-47.0); HEMOGLOBIN 13.5 gm/dL (12.0-15.0); MCH 32.2 pg (26.0-34.0); MCHC 34.6 g/dL (28.0-37.0); MCV 92.9 fL (80.0-100.0); MPV 10.6 fl. (7.2-11.1); RBC 4.19 mil/uL (4.20-5.00); RDW-CV 13.5 % (10.5-14.5)
[2020-09-27 04:44] LABS: ALBUMIN 3.1 g/dL (3.4-5.0); CALCIUM 9.3 mg/dL (8.5-10.1); CREATININE 0.8 mg/dL (0.6-1.3); MAGNESIUM 1.9 mg/dL (1.8-2.4); POTASSIUM 3.6 mmol/L (3.5-5.1); TOTAL BILIRUBIN 0.2 mg/dL (<0.1-1.0); TOTAL PROTEIN 6.4 g/dL (6.4-8.2)
[2020-09-27 08:15] VITALS: BP 142/80
== END 2020-09-27 15:00 | disposition home health service (06) | DRG 689 ==
LOC: M.ERS 20:54 → M.ORTHSURG 09-24 00:13 → M.TBA-ER 09-24 00:13 → M.ORTHSURG 09-24 01:36
PROVIDERS: Emergency Medicine; Internal Medicine; ADMIT Family Medicine; ATTEND Family Medicine
DX: N30.00 Acute cystitis without hematuria (principal); G92 Toxic encephalopathy; D68.59 Other primary thrombophilia; Z16.12 Extended spectrum beta lactamase (ESBL) resistance; I10 Essential (primary) hypertension; K21.9 Gastro-esophageal reflux disease without esophagitis; F32.9 Major depressive disorder, single episode, unspecified; G30.9 Alzheimer's disease, unspecified; F02.80 Dementia in other diseases classified elsewhere, unspecified severity, without behavioral disturbance, psychotic disturbance, mood disturbance, and anxiety; G47.00 Insomnia, unspecified; I48.91 Unspecified atrial fibrillation; R32 Unspecified urinary incontinence; B96.20 Unspecified Escherichia coli [E. coli] as the cause of diseases classified elsewhere; Z20.822 Contact with and (suspected) exposure to COVID-19; Z90.49 Acquired absence of other specified parts of digestive tract; Z79.82 Long term (current) use of aspirin; Z79.899 Other long term (current) drug therapy; Z88.1 Allergy status to other antibiotic agents; Z88.0 Allergy status to penicillin; Z88.8 Allergy status to other drugs, medicaments and biological substances

== ENCOUNTER 2020-10-20 01:10 | Emergency (ER) | payer OTHER, MEDICAID ==
[~2020-10-20] VITALS: Ht 162.6 cm; Wt 62.1 kg
[2020-10-20 01:58] LABS: BE 1.5 mmol/L (-2 to +3); PCO2 44.6 mmHg (35.0-45.0); PO2 98.7 mmHg (75.0-100.0); pH 7.396 (7.340-7.450)
[2020-10-20 01:59] LABS: ABSOLUTE EOSINOPHILS 0.1 thou/uL (0.0-0.7); ABSOLUTE LYMPHOCYTES 1.3 thou/uL (0.8-5.3); ABSOLUTE MONOCYTES 1.1 thou/uL (0.0-1.2); BASOPHILS 0.7 %; EOSINOPHILS 1.2 %; HEMATOCRIT 36.7 % (37.0-47.0); HEMOGLOBIN 12.9 gm/dL (12.0-15.0); LYMPHOCYTES 24.4 %; MCH 32.4 pg (26.0-34.0); MCHC 35.2 g/dL (28.0-37.0); MCV 92.1 fL (80.0-100.0); MONOCYTES 19.4 %; MPV 9.9 fl. (7.2-11.1); NUCLEATED RBCS 0 /100WBC; PLATELET COUNT* 152 thou/uL (150-400); POLYS 54.3 %; RBC 3.98 mil/uL (4.20-5.00); RDW-CV 13.6 % (10.5-14.5); WBC 5.5 thou/uL (4.0-11.0)
[2020-10-20 02:01] LABS: CALCIUM 8.5 mg/dL (8.5-10.1); CREATININE 0.8 mg/dL (0.6-1.3); POTASSIUM 3.5 mmol/L (3.5-5.1)
[2020-10-20 02:06] LABS: TOTAL BILIRUBIN 0.3 mg/dL (<0.1-1.0); TOTAL PROTEIN 6.6 g/dL (6.4-8.2)
[2020-10-20] MEDS ORDERED: OXYGEN MISCELL ×2 (02:56→02:57)
[2020-10-20 03:49] VITALS: BP 140/60
--- NOTE | 2020-10-22 14:33 | EKG ---
[place] [address] ELECTROCARDIOGRAM REPORT Name: LINDA BROCK Room: [facility]#: [id number] Admission: 10/20/20 Attend Phys: Discharge: 10/20/20 Date of : [birth year] Date of Service: 10/20/20 0120 Report #: [id number] THIS REPORT FOR: //name// [facility] ED Test Date: 2020-10-20 Test Time: 01:20:35 Pat Name: LINDA BROCK Department: Room: Gender: F B Operator: NATALIE : 1930 Requested By: Sherrie Pierre Order Number: [id number] MD: Miguel Hammer Measurements Intervals [place] Rate: 72 P: 15 [place]: 221 QRS: -47 QRSD: 136 T: -17 QT: 430 QTc: 471 Interpretive Statements 1. Sinus rhythm with first-degree AV block 2 incomplete right bundle branch block with leftward QRS axis [address] abnormalities 4. since the prior tracing, no significant interval change Electronically Signed On 10-22-2020 14:33:05 CDT by Miguel Hammer [email or web address] <ELECTRONICALLY SIGNED> By: Miguel Hammer MD, [facility] 10/22/20 1433 012 012 Miguel Hammer MD, [facility] /EPI
== END 2020-10-20 03:50 | disposition home or self-care (01) ==
LOC: M.ERS 01:10
PROVIDERS: Personal Emergency Response Attendant
DX: U07.1 COVID-19 (principal); I10 Essential (primary) hypertension; K21.9 Gastro-esophageal reflux disease without esophagitis; Z90.49 Acquired absence of other specified parts of digestive tract; Z79.82 Long term (current) use of aspirin; Z79.899 Other long term (current) drug therapy; Z79.1 Long term (current) use of non-steroidal anti-inflammatories (NSAID); Z88.1 Allergy status to other antibiotic agents; Z88.0 Allergy status to penicillin

== ENCOUNTER 2020-10-25 19:10 | Emergency (ER) | payer OTHER, MEDICAID ==
[~2020-10-25] VITALS: Ht 160 cm; Wt 61.2 kg
[~2020-10-25 19:10] MED LIST changes: +OXYGEN MISCELL
[2020-10-25 19:54] LABS: ABSOLUTE LYMPHOCYTES 1.1 thou/uL (0.8-5.3); ABSOLUTE MONOCYTES 0.7 thou/uL (0.0-1.2); ABSOLUTE NEUTROPHILS 7.9 thou/uL (1.6-8.1); BASOPHILS 0.4 %; EOSINOPHILS 0.5 %; HEMATOCRIT 39.9 % (37.0-47.0); LYMPHOCYTES 11.1 %; MCH 32.1 pg (26.0-34.0); MCHC 35.1 g/dL (28.0-37.0); MCV 91.5 fL (80.0-100.0); MONOCYTES 7.4 %; MPV 10.4 fl. (7.2-11.1); NUCLEATED RBCS 0 /100WBC; PLATELET COUNT* 158 thou/uL (150-400); POLYS 80.6 %; RBC 4.36 mil/uL (4.20-5.00); RDW-CV 13.6 % (10.5-14.5); WBC 9.8 thou/uL (4.0-11.0)
[2020-10-25 20:03] LABS: CALCIUM 8.3 mg/dL (8.5-10.1); CREATININE 0.9 mg/dL (0.6-1.3); POTASSIUM 4.2 mmol/L (3.5-5.1)
[2020-10-25 20:07] LABS: ALBUMIN 3.1 g/dL (3.4-5.0); MAGNESIUM 1.7 mg/dL (1.8-2.4); TOTAL BILIRUBIN 0.5 mg/dL (<0.1-1.0); TOTAL PROTEIN 7.6 g/dL (6.4-8.2)
[2020-10-25 21:01] LABS: BE 2.6 mmol/L (-2 to +3); PCO2 42.1 mmHg (35.0-45.0); PO2 94.4 mmHg (75.0-100.0); pH 7.429 (7.340-7.450)
[2020-10-25 22:03] LABS: URINE BILIRUBIN NEGATIVE (Negative); URINE BLOOD NEGATIVE (Negative); URINE CLARITY HAZY; URINE COLOR YELLOW; URINE GLUCOSE-RANDOM NEGATIVE (Negative); URINE KETONES NEGATIVE (Negative); URINE LEUKOCYTES-REFLEX TRACE (Negative); URINE NITRITE-REFLEX NEGATIVE (Negative); URINE PROTEIN NEGATIVE (Negative)
[2020-10-25 22:19] LABS: BACTERIA-REFLEX >30 Many /HPF (None Seen); CASTS None Seen /LPF (None Seen); CRYSTALS None Seen /LPF (None Seen); SQUAMOUS 0-3 Few /LPF (0-3); URINE RBC None Seen /HPF (0-2); URINE WBC-REFLEX 6-15 Few /HPF (0-5)
[2020-10-25] MEDS ORDERED: OXYGEN MISCELL (22:24)
[2020-10-25] MEDS ORDERED: MACROBID 100 M100 M1 PO (22:25)
[2020-10-25 23:35] VITALS: BP 125/60
--- NOTE | 2020-10-26 14:23 | EKG ---
[place] [address] ELECTROCARDIOGRAM REPORT Name: LINDA BROCK Room: [facility]#: [id number] Admission: 10/25/20 Attend Phys: Discharge: 10/25/20 Date of : [birth year] Date of Service: 10/25/201950 Report #: [id number] THIS REPORT FOR: //name// [facility] ED Test Date: 2020-10-25 Test Time: 19:51:23 Pat Name: LINDA BROCK Department: Room: Gender: Licensed Acupuncturist: : 1930 Requested By: Sherrie Pierre Order Number: [id number] MD: Miguel Hammer Measurements Intervals [place] Rate: 84 P: 9 [place]: 192 QRS: -46 QRSD: 130 T: -24 QT: 394 QTc: 466 Interpretive Statements Sinus rhythm Ventricular premature complex RBBB and LAFB Possible inferior scar Baseline wander in lead(s) II,III,aVF Compared to ECG 10/20/2020 01:20:35 Ventricular premature complex(es) now present Left anterior fascicular block persists Right bundle-branch block persists ST (T wave) deviation no longer present Electronically Signed On 10-26-2020 14:22:47 CDT by Miguel Hammer [email or web address] <ELECTRONICALLY SIGNED> By: Miguel Hammer MD, [facility] 10/26/20 1422 50 50 Miguel Hammer MD, [facility] /EPI
== END 2020-10-25 23:35 | disposition home or self-care (01) ==
LOC: M.ERS 19:10
PROVIDERS: Personal Emergency Response Attendant
DX: U07.1 COVID-19 (principal); J18.9 Pneumonia, unspecified organism; R09.02 Hypoxemia; I48.91 Unspecified atrial fibrillation; K21.9 Gastro-esophageal reflux disease without esophagitis; I10 Essential (primary) hypertension; Z90.49 Acquired absence of other specified parts of digestive tract; Z88.1 Allergy status to other antibiotic agents; Z88.8 Allergy status to other drugs, medicaments and biological substances; Z88.0 Allergy status to penicillin